=== PATIENT | female | born 1975 | race Caucasian/White ===

== ENCOUNTER 2018-05-16 08:01 | Inpatient (IN) | payer OTHER ==
[~2018-05-16] VITALS: Ht 165.1 cm; Wt 89.8 kg
[2018-05-16] MEDS ORDERED: NACL 0.9% 1,000 ML IV SCH ×2 (08:04→08:25)
[2018-05-16] MEDS ORDERED: FAMOTIDINE 20 MG/2 ML VIAL IVP ONE (08:05)
[2018-05-16 08:08] VITALS: BP 151/72
[2018-05-16] MEDS ORDERED: PANTOPRAZOLE 40 MG INJ VIAL IVP ONE (08:10)
--- NOTE | 2018-05-16 08:10 | NUR ---
PT AMBULATED TO ER BED 07
--- NOTE | 2018-05-16 08:20 | NUR ---
PATIENT PRESENTS TO ED WITH C/O DIZZY/LIGHTHEADED FOR WEEKS, RREFERRED OVER BY DR. MUÑOZ FOR SEVERE ANEMIA. HX OF CROHNS DISEASE, ANEMIA, ULCERATIVE COLITIS. AAOX4 WITH EVEN AND STEADY GAIT; LUNGS CLEAR BL; HR EVEN AND REGULAR; PT DENIES ANY FEVER, CP, SOB, OR COUGH AT THIS TIME; DENIES N/V/D; SKIN IS PINK/WARM/DRY; PATIENT STATES LIGHTHEADED 3/10 AT THIS TIME; VSS; PATIENT POSITIONED FOR COMFORT; HOB ELEVATED; BEDRAILS UP X2; BED DOWN. ER MADE AWARE OF PT STATUS. Addendum: 05/16/18 at 0903 by MNURTX BLEEDING IN STOOL PER PT.
[2018-05-16] MEDS ORDERED: MORPHINE SULFATE 2 MG/ML SYR IVP ONE (08:25)
[2018-05-16] MEDS ORDERED: metroNIDAZOLE 500 MG/NS PREMIX 100 ML IV ONE (08:25)
[2018-05-16] MEDS ORDERED: ONDANSETRON 4 MG/2 ML VIAL IVP ONE (08:25)
[2018-05-16] MEDS ORDERED: NACL 0.9% 1,000 ML IV ONE (08:25)
[2018-05-16] MEDS ORDERED: DEXAMETHASONE 10 MG/ML VIAL IVP ONE (08:25)
[2018-05-16] MEDS ORDERED: DICYCLOMINE HCL LIQUID 10 MG/5 ML UDC PO ONE (08:25)
--- NOTE | 2018-05-16 08:25 | NUR ---
Patient being evaluated by physician at bedside.
[2018-05-16 08:56] LABS: EOSINOPHILS # (AUTO) 0.1 K/uL (0-0.4); MEAN CORPUSCULAR VOLUME 60.2 fL (80-94); MONOCYTES # (AUTO) 0.4 K/uL (0.8-1.0); RED BLOOD CELL COUNT(AUTO) 2.78 MIL/uL (4.20-5.40)
[2018-05-16 08:59] LABS: BASOPHILS % (AUTO) 0.2 % (0.0-2.0); EOSINOPHILS % (AUTO) 1.4 % (0.0-4.0); LYMPHOCYTES # (AUTO) 1.9 K/uL (2.5-16.5); LYMPHOCYTES % (AUTO) 26.1 % (20.5-51.1); MEAN CORPUSCULAR HEMOGLOBIN 16 pg (27-31); MEAN CORPUSCULAR HGB CONC 27 g/dL (33-37); MONOCYTES % (AUTO) 5.3 % (1.7-9.3); NEUTROPHILS # (AUTO) 4.9 K/uL (1.8-7.7); PLATELET COUNT (AUTO) 289 K/uL (140-450); RED CELL DISTRIBUTION WIDTH 19.4 % (11.6-13.7); WHITE BLOOD COUNT (AUTO) 7.3 K/uL (4.8-10.8)
[2018-05-16 09:04] LABS: HEMATOCRIT 16.7 % (36-48); HEMOGLOBIN 4.6 g/dL (12.0-16.0)
[2018-05-16 09:05] LABS: AMYLASE 19 U/L (25-115); LIPASE 89 U/L (73-393)
[2018-05-16 09:12] LABS: PROTHROMBIN TIME 9.3 secs (10.8-13.4)
[2018-05-16 09:15] LABS: ANION GAP 9.6 (8-16); CARBON DIOXIDE 27.8 mmol/L (21-32); POTASSIUM 3.4 mmol/L (3.5-5.1)
[2018-05-16 09:16] LABS: ALBUMIN 3.1 g/dL (3.4-5.0); CREATININE 0.9 mg/dL (0.6-1.3); TOTAL BILIRUBIN 0.4 mg/dL (0.0-1.0)
--- NOTE | 2018-05-16 09:21 | NUR ---
COULD NOT GET THE IV SITE AT THIS TIME, DR. TENORIO MADE AWARE.
--- NOTE | 2018-05-16 09:36 | NUR ---
DR TENORIO AT BEDSIDE PREFORMING CENTRAL LINE INSERTION.
[2018-05-16] MEDS ORDERED: LIDOCAINE MPF 1% - 5 mL VIAL 10 ML ONE (09:37)
--- NOTE | 2018-05-16 10:06 | NUR ---
DR. TENORIO STATED IT IS OK TO USE THE CENTRAL LINE TO RIGHT FEMOUS.
[2018-05-16] MEDS: NACL 0.9% 1,000 ML IV SCH (10:19)
[2018-05-16] MEDS ORDERED: diphenhydrAMINE 50 MG/ML VIAL IVP ONE (10:25)
[2018-05-16 11:05] VITALS: BP 111/42
--- NOTE | 2018-05-16 11:05 | NUR ---
Patient will be admitted to care of DR. EUCEDA. Admited to TELEMETRY. Will go to room 105A. Belongings list completed. Report to MICHAEL GARCIA AT BEDSIDE.
[2018-05-16 11:09] LABS: APPEARANCE,URINE CLEAR (CLEAR); BILIRUBIN,URINE NEGATIVE (NEGATIVE); BLOOD, URINE 2+ (NEGATIVE); COLOR,URINE YELLOW (YELLOW); LEUKOCYTE ESTERASE ,URINE NEGATIVE (NEGATIVE); NITRITE, URINE NEGATIVE (NEGATIVE); UGLUCOSE NEGATIVE (NEGATIVE)
[2018-05-16 11:16] LABS: RBC,URINE 3-10 (FEW) /HPF (0-5); WBC,URINE 0-5 (RARE) /HPF (0-5)
--- NOTE | 2018-05-16 11:20 | NUR ---
RECEIVED PT REPORT FROM ER NURSE KRISTINA. PT IS AAOX4. NO S/S OF ACUTE DISTRESS NOTED ON 2L NC. PT C/O ABD PAIN 7/10, WILL ADMINISTER PAIN MED ORDERED. RIGHT FEMORAL CENTRAL LINE NOTED. TRIPLE LUMEN, FLUSHED, BLOOD RETURN GOOD. RUNNING NS BOLUS. ACCORDING TO ER NURSE, RIGHT FEMORAL CVP WAS PUT IN BY ER MD ON THE 2ND TRY. CENTRAL LINE DRESSING IS INTACT, NO REDNESS NOTED, A LITTLE SWELLING. ORIENTED PT TO ROOM AND CALL LIGHT. MRSA SWAB DONE. PT DENIES ANY NAUSEA AND VOMITING AT THIS TIME. BED IN LOWEST POSITION, LOCKED. CALL LIGHT WITHIN REACH. TELE MONITORING ON. WILL CONTINUE TO MONITOR.
[2018-05-16] MEDS: MORPHINE SULFATE 2 MG/ML SYR IVP PRN ×3 (11:25→19:53)
[2018-05-16] MEDS ORDERED: FAMOTIDINE 20 MG/2 ML VIAL ONE (11:27)
[2018-05-16] MEDS ORDERED: PANTOPRAZOLE 40 MG INJ VIAL ONE (11:28)
--- NOTE | 2018-05-16 12:05 | NUR ---
BLOOD TRANSFUSION STARTED. PRE TRANSFUSION VITALS TAKEN, RECORDED ON BLOOD TRANSFUSION PAPER.
--- NOTE | 2018-05-16 13:26 | NUR ---
BLOOD TRANSFUSION IS INFUSING. PATIENT TOLERATED WELL. VITAL SIGNS ARE STABLE. NO SIGNS OF DISTRESS NOTED. DENIES OF PAIN. DAUGHTER MILAN IS AT BEDSIDE. WILL CONTINUE TO MONITOR.
--- NOTE | 2018-05-16 14:30 | NUR ---
PAGED DR EUCEDA.
--- NOTE | 2018-05-16 15:49 | NUR ---
SPOKE WITH DR EUCEDA OVER THE PHONE, REPORTED PT C/O PAIN AT THE RIGHT FEMORAL CVP SITE. A BUMP IS NOTICED. NO REDNESS. SUGGESTED IT MIGHT BE HEMATOMA OR TRAUMA FROM CVP INSERTION. STILL WAITING ON X RAY FOR CVP PLACEMENT RESULT. DR EUCEDA STATED THERE IS NOTHING CAN BE DONE AT THIS TIME, PT CAN HAVE PICC LINE.
--- NOTE | 2018-05-16 15:55 | NUR ---
SPOKE WITH PT ABOUT PICC LINE OR A NEW IV ON HER ARM, HOWEVER, PT REFUSED TO HAVE ANOTHER LINE INSERTION.
[2018-05-16 16:00] VITALS: BP 118/73
--- NOTE | 2018-05-16 16:35 | NUR ---
SPOKE WITH DR EUCEDA, NOTIFIED HIM THAT CHEST X RAY FOR PLACEMENT THAT DID NOT SHOW THE CENTRAL LINE CATHETER IN THE LOWER VENA CAVA, BUT THERE IS BLOOD RETURN WHEN ASPIRATING. DR EUCEDA STATED IT'S OK, YOU WON'T SEE IT ON THE CHEST X RAY IF IT'S A FEMORAL CVP. DR IS OK WITH GIVING THE 2ND UNIT OF BLOOD VIA THE R FEMORAL CVP.
--- NOTE | 2018-05-16 17:15 | NUR ---
CHECKED PATIENT'S PRE-TRANSFUSION VITAL SIGNS; TEMP 97.5, PULSE 98, RESPIRATION 19, BP 128/65, AND PAIN 2/10 WITHIN TOLERATED LIMIT. NO SIGNS OF DISTRESS WITH 2L NC. ASSISTED PATIENT TO USE THE BEDPAN TO VOID. BLOOD TRANSFUSION STARTED AT THIS TIME. WILL CONTINUE TO MONITOR.
--- NOTE | 2018-05-16 17:45 | NUR ---
BLOOD TRANSFUSION IS INFUSING. PATIENT'S VITAL SIGNS ARE STABLE. PATIENT DENIES OF ANY DIZZINESS AND NAUSEA. PATIENT CLAIMS OF PAIN 2/10 WITHIN TOLERATED LIMIT. NO SIGNS OF DISTRESS W 2L NC NOTED. WILL CONTINUE TO MONITOR.
[2018-05-16] MEDS ORDERED: GABA100C PO (19:10)
--- NOTE | 2018-05-16 19:10 | NUR ---
GAVE BEDSIDE REPORT TO AUTOMOTIVE PARTS COUNTER ASSOCIATE FOR CONTINUITY OF CARE. PATIENT IS STABLE. DENIES OF PAIN AND NAUSEA. NO SIGNS OF DISTRESS NOTED. INFORMED AUTOMOTIVE PARTS COUNTER ASSOCIATE NURSE TO NOTIFY LAB FOR BLOOD LAB 2 HOURS AFTER BLOOD TRANSFUSION COMPLETED.
--- NOTE | 2018-05-16 19:10 | NUR ---
REPORT RECEIVED FROM RADHA RN DAYSHIFT NURSE AND FERNANDO RN DAYSHIFT NURSE AT BEDSIDE FOR CONTINUITY OF CARE, PT IN STABLE CONDITION.
[2018-05-16] MEDS ORDERED: ADAL40PE2 SQ (19:26)
[2018-05-16] MEDS ORDERED: HYDR-5092 PO (19:26)
--- NOTE | 2018-05-16 19:35 | NUR ---
BLOOD TRANSFUSION CONTINUES VIA CENTRAL LINE IN R FEMORAL VEIN. V/S FOLLOWS T 98.3 P 62 R 20 B/P 128/69 02 96% ON R/A. PT C/O 8/10 PAIN IN ABDOMEN. WILL MEDICATE PT.
[2018-05-16 20:00] VITALS: BP 142/74
--- NOTE | 2018-05-16 20:50 | NUR ---
BLOOD TRANSFUSION FINISHED FINAL V/S FOLLOWS T 98.4 P 70 R 18 B/P 128/69 02 96% WITH R/A. PT GIVEN PRN/IVP MORPHINE 0.5ML/1MG GIVEN IVP ORDERED. WILL MONITOR PT FOR PAIN RELIEF.
--- NOTE | 2018-05-16 22:15 | NUR ---
LAB AT BEDSIDE DRAWING POST TRANSFUSION LABS.
[2018-05-16 22:46] LABS: HEMATOCRIT 23.8 % (36-48)
--- NOTE | 2018-05-16 23:00 | NUR ---
ALVARO FROM LAB CALLED NEW LAB VALUES FOR H&H. 7.0/23.8. PT UPDATED.
[2018-05-17] VITALS: BP 130/67
[2018-05-17] MEDS: MORPHINE SULFATE 2 MG/ML SYR IVP PRN ×6 (00:22→22:21)
[2018-05-17] MEDS: NACL 0.9% 1,000 ML IV SCH ×3 (00:30→22:27)
--- NOTE | 2018-05-17 02:00 | NUR ---
PT SLEEPING BED IN LOW POSITION SIDE RAILS UP X2 AND CALL CASTILLO IN REACH.
[2018-05-17 04:00] VITALS: BP 107/53
--- NOTE | 2018-05-17 04:30 | NUR ---
PT IN BED AWAKE WITH C/O OF 7/10 PAIN GIVEN MORPHINE IVP, WILL MONITOR EFFECT. V/S FOLLOWS T 98.4 P 62 R 18 B/P 131/63 02 93% ON R/A.
[2018-05-17 07:13] LABS: BASOPHILS % (AUTO) 0.1 % (0.0-2.0); HEMATOCRIT 22.3 % (36-48); LYMPHOCYTES # (AUTO) 1.3 K/uL (2.5-16.5); LYMPHOCYTES % (AUTO) 26.8 % (20.5-51.1); MEAN CORPUSCULAR HEMOGLOBIN 20 pg (27-31); MEAN CORPUSCULAR HGB CONC 30 g/dL (33-37); MEAN CORPUSCULAR VOLUME 68.4 fL (80-94); MONOCYTES # (AUTO) 0.2 K/uL (0.8-1.0); MONOCYTES % (AUTO) 3.7 % (1.7-9.3); NEUTROPHILS # (AUTO) 3.3 K/uL (1.8-7.7); NEUTROPHILS % (AUTO) 69.4 % (42.2-75.2); PLATELET COUNT (AUTO) 231 K/uL (140-450); RED BLOOD CELL COUNT(AUTO) 3.26 MIL/uL (4.20-5.40); RED CELL DISTRIBUTION WIDTH 27.6 % (11.6-13.7); WHITE BLOOD COUNT (AUTO) 4.7 K/uL (4.8-10.8)
--- NOTE | 2018-05-17 07:30 | NUR ---
RECEIVED BEDSIDE REPORT FROM CREASING MACHINE OPERATOR RN. PT AAOX4, SLEEPING IN BED, AROUSABLE BY TOUCH. C/O /10 ABD PAIN AND DISCOMFORT, WISHES TO RECEIVE MORPHINE WHEN DUE. NO S/S ACUTE DISTRESS. RESPIRATIONS EVEN AND UNLABORED. SKIN INTACT. PER CREASING MACHINE OPERATOR, PT IS CONTINENT AND AMBULATORY. RT FEMORAL PICC TRIPLE LUMEN PATENT AND ASYMPTOMATIC, INFUSING IVF PER MD ORDERS. ALL OTHER SAFETY PRECAUTIONS IN PLACE, WILL CONTINUE TO MONITOR.
[2018-05-17 07:36] LABS: HEMOGLOBIN 6.6 g/dL (12.0-16.0)
--- NOTE | 2018-05-17 07:42 | NUR ---
PT DENIES DIZZINESS, LIGHTHEADEDNESS. NO CHANGE IN FATIGUE. VITALS STABLE.
--- NOTE | 2018-05-17 07:45 | NUR ---
NOTIFIED DR. EUCEDA REGARDING LOW HGB 6.6. RECEIVED ORDERS TO TRANSFUSE 2U PRBC.
[2018-05-17 07:54] LABS: ALBUMIN 2.8 g/dL (3.4-5.0); ANION GAP 11.9 (8-16); CREATININE 0.6 mg/dL (0.6-1.3); POTASSIUM 3.9 mmol/L (3.5-5.1); TOTAL BILIRUBIN 0.6 mg/dL (0.0-1.0)
[2018-05-17 08:00] VITALS: BP 127/64
--- NOTE | 2018-05-17 08:57 | NUR ---
CALLED BLOOD BANK TO MAKE SURE THEY ARE AWARE OF 2U PRBC ORDER. BLOOD BANK WILL FOLLOW UP.
--- NOTE | 2018-05-17 10:45 | NUR ---
DR. EUCEDA HAS EXPLAINED POC TO PATIENT AND ANSWERED ALL OF PT'S QUESTIONS. PT VERBALIZED COMPLETE UNDERSTANDING. PER DR. EUCEDA, PUT PT ON CLEAR LIQUID DIET. IF DR. MUÑOZ DECIDES TO DO PROCEDURE, PLACE PT BACK ON NPO.
[2018-05-17 11:11] LABS: HEMATOCRIT 21.6 % (36-48)
[2018-05-17 11:14] LABS: HEMOGLOBIN 6.4 g/dL (12.0-16.0)
[2018-05-17 12:00] VITALS: BP 126/72
--- NOTE | 2018-05-17 14:55 | NUR ---
FIRST UNIT PRBC TRANSFUSION COMPLETE. NO REACTION. PT WISHES TO USE THE BATHROOM FOR A WHILE BEFORE SECOND BAG PRBC.
[2018-05-17 16:00] VITALS: BP 126/72
--- NOTE | 2018-05-17 16:08 | NUR ---
SECOND UNIT PRBC TRANSFUSION STARTED.
--- NOTE | 2018-05-17 19:15 | NUR ---
ENDORSED POC TO BEATER AND PULPER FEEDER RN. PT IN STABLE CONDITION.
--- NOTE | 2018-05-17 19:15 | NUR ---
RECEIVED REPORT FROM ALONDRA RODRIGUEZ DAYSHIFT NURSE AT BEDSIDE FOR CONTINUITY OF CARE, PT IN STABLE CONDITION.
--- NOTE | 2018-05-17 19:20 | NUR ---
BLOOD TRANSFUSION COMPLETED, NO S/S OF REACTION NOTED. PT AOX4 AND WAS ABLE TO AMBULATE TO TOILET AND BACK TO BED STEADILY. PT HAD A BM WITH NO BLOODY STOOL. PT DID C/O THAT HER PRN MORPHINE WAS NOT EFFECTIVE ANY MORE AND THAT SHE FEELS THAT WE NEED TO CHANGE THE DOSE. WILL CALL HER PRIMARY DOCTOR REGARDING HE PAIN MEDICATION. V/S FOLLOWS T 97.7 P 60 R18 B/P 149/83 02 99% WITH R/A.
[2018-05-17 20:00] VITALS: BP 149/83
--- NOTE | 2018-05-17 20:30 | NUR ---
CALLED [facility] EXCHANGE NUMBER AND SPOKE WITH IAN WHO PAGED THE ON- CALL BENNIE ZAMUDIO. AWAITING RETURN CALL.
--- NOTE | 2018-05-17 21:00 | NUR ---
RECEIVED A CALL BACK FROM DR. BALDERAS, NEW ORDER NOTED FOR MORPHINE 3MG/1.5MLS Q 4HRS FOR SEVERE PAIN 10/29.
--- NOTE | 2018-05-17 22:30 | NUR ---
PT REQUEST PAIN MEDICATION FOR SEVERE PAIN 11/29. PT MOANING, CRYING AND GUARDING SITE. WHEN MEDICATION WAS DRAWN OUT OF PIXIS, 2 SYRINGES WERE ORDERED AND 1/2 A SYRINGE NEEDED TO BE WASTED. WHEN TAKING SYRINGE OUT OF PACKAGE , THE PLUNGER CAME OUT AND THE MEDICATION SPILLED. MORE MEDICATION NEEDED TO BE TAKEN OUT OF PIXIS (2 MORE SYRINGES.) ONE SYRINGE WAS RETURNED AND 1/2 A SYRINGE WAS WASTED TO MAKE UP 3MLS OF MORPHINE TO BE GIVEN TO PT VIA IV SITE. PT GIVEN ORDERED 3MG OF MORPHINE FOR SEVERE PAIN. BENNIE CONTINUE TO MONITOR PT FOR PAIN RELIEF.
[2018-05-18] VITALS: BP 123/66
--- NOTE | 2018-05-18 00:30 | NUR ---
PT IN BED RESTING WITH EYES CLOSED, BUT AROUSABLE TO NAME. PT STATES THAT SHE HAS NO PAIN AT THIS TIME 0. V/S FOLLOWS T 97.6 P 54 R 18 B/P 123/66 02 94% ON R/A.
[2018-05-18] MEDS: MORPHINE SULFATE 2 MG/ML SYR IVP PRN ×5 (02:39→20:05)
--- NOTE | 2018-05-18 02:45 | NUR ---
PT C/O SEVERE PAIN 8/10 IN ABD, GIVEN 3MG MORPHINE IVP WILL MONITOR PT FOR PAIN RELIEF.
[2018-05-18 04:00] VITALS: BP 132/69
--- NOTE | 2018-05-18 04:00 | NUR ---
PT IN BED NO C/O VOICED V/S FOLLOWS T 97.2 P 58 R 18 B/P 132/69 02 92 ON R/A. BED LOW AND SIDE RAILS UP X2 CALL CASTILLO IN REACH.
--- NOTE | 2018-05-18 05:30 | NUR ---
BETH BLOOD FROM RIGHT PICC LINE FOR LABS.
--- NOTE | 2018-05-18 06:29 | NUR ---
PATIENT HAS BEEN SCREENED AND CATEGORIZED MODERATE NUTRITION RISK. PATIENT WILL BE SEEN WITHIN 3-5 DAYS OF ADMISSION. 05/19/18-05/21/18 YAYO KENDALL MS, RDN
--- NOTE | 2018-05-18 07:10 | NUR ---
RECEIVED PT REPORT FROM PLASTIC SEWER NURSE. PT IS AWAKE AND C/O PAIN IN HER L ABD, EVEN THOUGH SHE WAS GIVEN PRN PAIN MEDICINE Q4H, AND HER MORPHINE DOSE HAS BEEN RECENTLY INCREASED TO 3 MG. PT IS ON ROOM AIR, SKIN IS INTACT. NO C/O SOB PT HAS A TRIPLE LUMEN CENTRAL LINE IN THE FEMORAL VEIN, CURRENTLY INFUSING NS 75 ML/HR. CALL LIGHT WITHIN REACH. WILL CONT TO MONITOR PT.
--- NOTE | 2018-05-18 07:20 | NUR ---
CARE ENDORSED TO JJ RN DAYSHIFT NURSE AT BEDSIDE FOR CONTINUITY CARE, PT IN STABLE CONDITION.
[2018-05-18 07:21] LABS: BASOPHILS % (AUTO) 0.1 % (0.0-2.0); EOSINOPHILS % (AUTO) 0.1 % (0.0-4.0); HEMATOCRIT 27.3 % (36-48); HEMOGLOBIN 8.3 g/dL (12.0-16.0); LYMPHOCYTES # (AUTO) 2.6 K/uL (2.5-16.5); LYMPHOCYTES % (AUTO) 23.9 % (20.5-51.1); MEAN CORPUSCULAR HEMOGLOBIN 22 pg (27-31); MEAN CORPUSCULAR HGB CONC 30 g/dL (33-37); MONOCYTES # (AUTO) 0.7 K/uL (0.8-1.0); MONOCYTES % (AUTO) 6.9 % (1.7-9.3); NEUTROPHILS # (AUTO) 7.4 K/uL (1.8-7.7); PLATELET COUNT (AUTO) 222 K/uL (140-450); RED BLOOD CELL COUNT(AUTO) 3.85 MIL/uL (4.20-5.40); WHITE BLOOD COUNT (AUTO) 10.7 K/uL (4.8-10.8)
[2018-05-18 08:00] VITALS: BP 153/81
--- NOTE | 2018-05-18 08:00 | NUR ---
PT IS C/O PAIN NOT RELIEVING EVEN AFTER HAVING PRN MORPHINE 3MG ADMINISTERED Q4H. SHE INSISTS ON TALKING TO THE DOCTOR RIGHT AWAY ABOUT HER PAIN MEDICATION AND STATES THAT STAFF IS "NOT LISTENING TO HER" ABOUT HER PAIN COMPLAINTS. WILL TALK TO DOCTOR KINSEY REGARDING PT'S PAIN
[2018-05-18 08:01] LABS: ALBUMIN 2.8 g/dL (3.4-5.0); ANION GAP 9.8 (8-16); CARBON DIOXIDE 24.9 mmol/L (21-32); CREATININE 0.7 mg/dL (0.6-1.3); POTASSIUM 3.7 mmol/L (3.5-5.1); TOTAL BILIRUBIN 0.5 mg/dL (0.0-1.0)
--- NOTE | 2018-05-18 08:43 | NUR ---
DR EUCEDA IS AWARE OF PT'S UNRELENTING PAIN EVEN AFTER INCREASING DOSE OF MORPHINE
--- NOTE | 2018-05-18 09:18 | NUR ---
PT SEEN BY DR EUCEDA
--- NOTE | 2018-05-18 10:25 | NUR ---
PT OFF THE UNIT FOR ABD/PELVIS CT SCAN
--- NOTE | 2018-05-18 10:40 | NUR ---
PT BACK IN ROOM FROM CT SCAN
[2018-05-18 12:00] VITALS: BP 131/73
[2018-05-18] MEDS: methylPREDNISolone SS 125 MG/2 ML VIAL IVP SCH ×2 (12:41→20:04)
[2018-05-18] MEDS: metroNIDAZOLE 500 MG/NS PREMIX 100 ML IV SCH ×2 (12:42→20:04)
--- NOTE | 2018-05-18 12:55 | NUR ---
PT STATES HER PAIN IS MUCH BETTER AT THIS TIME. IV FLAGYL IS INFUSING, DAUGHTER VISITING AT BEDSIDE. WILL CONTINUE TO MONITOR.
[2018-05-18] MEDS: NACL 0.9% 1,000 ML IV SCH (15:39)
[2018-05-18 16:00] VITALS: BP 148/70
--- NOTE | 2018-05-18 19:25 | NUR ---
ENDORSED TO LIFE SCIENTIST IN STABLE CONDITION
--- NOTE | 2018-05-18 19:26 | NUR ---
RECEIVED REPORT FROM DAY SHIFT NURSE JJ-RN AT BEDSIDE. PT RESTING IN BED, AOX4, ON ROOM AIR WITH A CENTRAL RIGHT FEMORAL VEIN TRIPLE LUMEN. DISCUSSED PLAN OF CARE AND PT VERBALIZED UNDERSTANDING. NO S/S OF RESPIRATORY DISTRESS OR DISCOMFORT NOTED AT THIS TIME. BED IN LOWEST POSITION, BED BREAKS ON, BOTH SIDE RAILS UP. BEDSIDE TABLE AND CALL LIGHT ARE WITHIN REACH. WILL CONTINUE TO MONITOR.
[2018-05-18 20:00] VITALS: BP 118/42
--- NOTE | 2018-05-18 20:00 | NUR ---
VITAL SIGNS TAKEN AND TOLERATED WELL. PT C/O PAIN 10/29- WILL MEDICATE. NO S/S OF RESPIRATORY DISTRESS OR DISCOMFORT NOTED AT THIS TIME. WILL CONTINUE TO MONITOR.
--- NOTE | 2018-05-18 20:05 | NUR ---
SCHEDULED MEDICATION GIVEN AND PAIN MEDICATION. PT TOLERATED WELL. NO S/S OF RESPIRATORY DISTRESS OR DISCOMFORT NOTED AT THIS TIME. WILL CONTINUE TO MONITOR.
--- NOTE | 2018-05-18 22:00 | NUR ---
PT RESTING IN BED. NO S/S OF RESPIRATORY DISTRESS OR DISCOMFORT NOTED AT THIS TIME. WILL CONTINUE TO MONITOR.
[2018-05-19] VITALS: BP 131/57
--- NOTE | 2018-05-19 | NUR ---
VITAL SIGNS TAKEN AND TOLERATED WELL. PT C/O PAIN 10/29 WILL MEDICATE. NO S/S OF RESPIRATORY DISTRESS OR DISCOMFORT NOTED AT THIS TIME. WILL CONTINUE TO MONITOR.
[2018-05-19] MEDS: MORPHINE SULFATE 2 MG/ML SYR IVP PRN ×4 (00:24→14:07)
--- NOTE | 2018-05-19 00:24 | NUR ---
PAIN MEDICATION GIVEN AND TOLERATED WELL. NO S/S OF RESPIRATORY DISTRESS OR DISCOMFORT NOTED AT THIS TIME. WILL CONTINUE TO MONITOR.
--- NOTE | 2018-05-19 02:00 | NUR ---
PT SLEEPING IN BED. NO S/S OF RESPIRATORY DISTRESS OR DISCOMFORT NOTED AT THIS TIME. WILL CONTINUE TO MONITOR.
[2018-05-19 04:00] VITALS: BP 145/76
--- NOTE | 2018-05-19 04:00 | NUR ---
VITAL SIGNS TAKEN AND TOLERATED WELL. NO S/S OF RESPIRATORY DISTRESS OR DISCOMFORT NOTED AT THIS TIME. WILL CONTINUE TO MONITOR.
[2018-05-19] MEDS: NACL 0.9% 1,000 ML IV SCH (04:40)
[2018-05-19] MEDS: methylPREDNISolone SS 125 MG/2 ML VIAL IVP SCH (04:40)
[2018-05-19] MEDS: metroNIDAZOLE 500 MG/NS PREMIX 100 ML IV SCH (04:40)
--- NOTE | 2018-05-19 04:40 | NUR ---
SCHEDULED MEDICATION GIVEN AND TOLERATED WELL. PT C/O PAIN 710- WILL MEDICATE. NO S/S OF RESPIRATORY DISTRESS OR DISCOMFORT NOTED AT THIS TIME. WILL CONTINUE TO MONITOR.
--- NOTE | 2018-05-19 04:53 | NUR ---
PAIN MEDICATION GIVEN AND TOLERATED WELL. NO S/S OF RESPIRATORY DISTRESS OR DISCOMFORT NOTED AT THIS TIME. WILL CONTINUE TO MONITOR.
[2018-05-19] MEDS ORDERED: MORPHINE SULFATE 4 MG/ML SYR ONE (04:59)
[2018-05-19 06:50] LABS: ANION GAP 9.6 (8-16); CARBON DIOXIDE 27.3 mmol/L (21-32); CREATININE 0.6 mg/dL (0.6-1.3); POTASSIUM 3.9 mmol/L (3.5-5.1); TOTAL BILIRUBIN 0.6 mg/dL (0.0-1.0)
--- NOTE | 2018-05-19 07:21 | NUR ---
RECEIVED REPORT FROM COVER MARKER RN AT BEDSIDE. PT RESTING IN BED, AOX4, ON ROOM AIR WITH A CENTRAL RIGHT FEMORAL VEIN TRIPLE LUMEN. DISCUSSED PLAN OF CARE AND PT VERBALIZED UNDERSTANDING. NO S/S OF RESPIRATORY DISTRESS OR DISCOMFORT NOTED AT THIS TIME. BED IN LOWEST POSITION, BED BREAKS ON, BOTH SIDE RAILS UP. BEDSIDE TABLE AND CALL LIGHT ARE WITHIN REACH. WILL CONTINUE TO MONITOR.
--- NOTE | 2018-05-19 07:29 | NUR ---
ENDORSED PT CARE TO DAY SHIFT NURSE ROBERT FOR CONTINUITY OF CARE.
[2018-05-19 08:00] VITALS: BP 138/63
[2018-05-19 08:24] LABS: BASOPHILS % (AUTO) 0.1 % (0.0-2.0); HEMATOCRIT 28.4 % (36-48); HEMOGLOBIN 8.6 g/dL (12.0-16.0); LYMPHOCYTES # (AUTO) 0.9 K/uL (2.5-16.5); LYMPHOCYTES % (AUTO) 13.1 % (20.5-51.1); MEAN CORPUSCULAR HEMOGLOBIN 22 pg (27-31); MEAN CORPUSCULAR HGB CONC 30 g/dL (33-37); MEAN CORPUSCULAR VOLUME 71.3 fL (80-94); MONOCYTES # (AUTO) 0.1 K/uL (0.8-1.0); MONOCYTES % (AUTO) 1.4 % (1.7-9.3); NEUTROPHILS % (AUTO) 85.4 % (42.2-75.2); PLATELET COUNT (AUTO) 219 K/uL (140-450); RED BLOOD CELL COUNT(AUTO) 3.99 MIL/uL (4.20-5.40); RED CELL DISTRIBUTION WIDTH 28.7 % (11.6-13.7); WHITE BLOOD COUNT (AUTO) 7.1 K/uL (4.8-10.8)
--- NOTE | 2018-05-19 09:39 | NUR ---
PT COMPLAINING OF 7/10 PAIN. MORPHINE 3MG ADMINISTERED. WILL REASSESS FOR MED EFFECTIVENESS. ALL OTHER NEEDS MET AT THIS TIME. BED IN LOW POSITION, CALL LIGHT WITHIN REACH.
[2018-05-19 12:00] VITALS: BP 142/77
--- NOTE | 2018-05-19 17:40 | NUR ---
PT DISCHARGED HOME VIA PRIVATE VEHICLE ACCOMPANIED BY DAUGHTER. FEMORAL CENTRAL LINE REMOVED WITH TIP INTACT. NO SIGNS OF BLEEDING NOTED. PT SIGNED DISCHARGE PAPERS. VERBALIZED UNDERSTANDING OF TEACHING AND IMPORTANCE OF FOLLOW UP WITH GI SPECIALIST. PT TOOK ALL PERSONAL BELONGINGS WITH HER. PT LEFT IN STABLE CONDITION. ALL NEEDS MET AT THIS TIME.
== END 2018-05-19 17:40 | disposition home or self-care (01) | DRG 253 ==
LOC: MED 08:01 → MTU 10:25
PROVIDERS: ADMIT Internal Medicine; ATTEND Internal Medicine
PROC: 30233N1 Transfusion of Nonautologous Red Blood Cells into Peripheral Vein, Percutaneous Approach (ICD-10-PCS; principal; 2018-05-16)
PROC: 06H033Z Insertion of Infusion Device into Inferior Vena Cava, Percutaneous Approach (ICD-10-PCS; 2018-05-16)
PROC: B549ZZA Ultrasonography of Inferior Vena Cava, Guidance (ICD-10-PCS; 2018-05-16)
DX: K92.2 Gastrointestinal hemorrhage, unspecified (principal); K50.90 Crohn's disease, unspecified, without complications; D62 Acute posthemorrhagic anemia; G89.29 Other chronic pain; M54.5 Low back pain; Z82.49 Family history of ischemic heart disease and other diseases of the circulatory system
CPT/HCPCS: 36415; 36556; 71045; 80053; 81001; 81025; 82150; 83690; 84703; 85018; 85025; 85610; 85730; 86886; 86900; 86901; 86920; 87081; 93005; 96365; 96375; 99291; C9113; J1100; J1200; J1642; J2001; J2270; J2405; J2930; J3490; J7030; P9016; Q0092

== ENCOUNTER 2019-11-10 10:13 | Emergency (ER) | payer OTHER, SELFPAY ==
[~2019-11-10] VITALS: Ht 160 cm; Wt 88.5 kg
[~2019-11-10 10:13] MED LIST: ADAL40PE2 SQ; GABA100C PO; HYDR-5092 PO
[2019-11-10 10:25] VITALS: BP 140/85
--- NOTE | 2019-11-10 10:26 | NUR ---
Pt ambulated to bed 07
--- NOTE | 2019-11-10 10:28 | NUR ---
44 y/o female from home c/o gen weakness x 1 wk and dizziness since yesterday. Pt states she was admitted to [facility] last month for intestinal infection. denies n/v/d. States 5/10 pain at this time. Denies sob/cough. RR even and unlabored, bowel sounds present x 4 quad. positioned for comfort. vss
--- NOTE | 2019-11-10 10:30 | NUR ---
Pt ambulated to restroom for collection of urine
--- NOTE | 2019-11-10 10:33 | NUR ---
Dr Richardson at bedside examining pt
[2019-11-10] MEDS ORDERED: METOCLOPRAMIDE 10 MG/2 ML INJ VIAL IVP ONE (10:40)
[2019-11-10] MEDS ORDERED: diphenhydrAMINE 50 MG/ML VIAL IVP ONE (10:40)
[2019-11-10] MEDS ORDERED: NACL 0.9% 1,000 ML IV ONE ×2 (10:40→13:05)
--- NOTE | 2019-11-10 10:54 | NUR ---
Lab at bedside for blood draw
[2019-11-10 11:15] LABS: BASOPHILS % (AUTO) 0.2 % (0.0-2.0); EOSINOPHILS # (AUTO) 0.2 K/uL (0-0.4); EOSINOPHILS % (AUTO) 2.1 % (0.0-4.0); HEMATOCRIT 37.9 % (36-48); HEMOGLOBIN 11.8 g/dL (12.0-16.0); LYMPHOCYTES # (AUTO) 4.5 K/uL (2.5-16.5); MEAN CORPUSCULAR HEMOGLOBIN 25 pg (27-31); MEAN CORPUSCULAR HGB CONC 31 g/dL (33-37); MEAN CORPUSCULAR VOLUME 79.5 fL (80-94); MONOCYTES # (AUTO) 0.7 K/uL (0.8-1.0); NEUTROPHILS # (AUTO) 4.4 K/uL (1.8-7.7); NEUTROPHILS % (AUTO) 44.7 % (42.2-75.2); PLATELET COUNT (AUTO) 234 K/uL (140-450); RED BLOOD CELL COUNT(AUTO) 4.76 MIL/uL (4.20-5.40); RED CELL DISTRIBUTION WIDTH 26.7 % (11.6-13.7); WHITE BLOOD COUNT (AUTO) 9.9 K/uL (4.8-10.8)
[2019-11-10 11:18] LABS: BILIRUBIN,URINE NEGATIVE (NEGATIVE); BLOOD, URINE NEGATIVE (NEGATIVE); LEUKOCYTE ESTERASE ,URINE NEGATIVE (NEGATIVE); NITRITE, URINE NEGATIVE (NEGATIVE); PH,URINE 5.5 (5.0-9.0); UGLUCOSE NEGATIVE (NEGATIVE)
[2019-11-10 11:22] LABS: APPEARANCE,URINE CLEAR (CLEAR); COLOR,URINE YELLOW (YELLOW)
[2019-11-10 11:32] LABS: ALBUMIN 3.7 g/dL (3.4-5.0); ANION GAP 14.3 (8-16); CARBON DIOXIDE 27.1 mmol/L (21-32); CREATININE 0.8 mg/dL (0.6-1.3); POTASSIUM 4.4 mmol/L (3.5-5.1); TOTAL BILIRUBIN 0.3 mg/dL (0.0-1.0)
--- NOTE | 2019-11-10 12:04 | NUR ---
Pt awake and alert, rr even and unlabored. States some discomfort at this time
--- NOTE | 2019-11-10 12:41 | NUR ---
Ambulated to restroom with steady gait
[2019-11-10] MEDS ORDERED: HALOPERIDOL IM 5 MG/ML VIAL IVP ONE (13:10)
--- NOTE | 2019-11-10 13:23 | NUR ---
PT RESTING IN BED. IVP HALDOL & 2ND LITER OF NS ADMINISTERED PER ORDER. PT DENIES PAIN AT THIS TIME.
--- NOTE | 2019-11-10 14:34 | NUR ---
AWAKE AND ALERT, RR EVEN AND UNLABORED. VSS.
[2019-11-10 15:17] VITALS: BP 134/87
--- NOTE | 2019-11-10 15:18 | NUR ---
Patient discharged with v/s stable. Written and verbal after care instructions given and explained. Patient alert, oriented and verbalized understanding of instructions. Ambulatory with steady gait. All questions addressed prior to discharge. ID band removed. Patient advised to follow up with PMD. Rx of COMPAZINE 10MG given. Patient educated on indication of medication including possible reaction and side effects. Opportunity to ask questions provided and answered.
== END 2019-11-10 15:18 | disposition home or self-care (01) ==
LOC: MED 10:13
DX: F41.9 Anxiety disorder, unspecified (principal); R42 Dizziness and giddiness; E86.0 Dehydration; R11.0 Nausea; D64.9 Anemia, unspecified; K50.90 Crohn's disease, unspecified, without complications; Z79.899 Other long term (current) drug therapy
CPT/HCPCS: 36415; 80053; 81003; 83690; 84702; 85025; 86886; 86900; 86901; 93005; 96361; 96374; 96375; 99284; J1200; J1630; J2765; J7030

== ENCOUNTER 2019-11-18 06:36 | Day surgery (SDC) | payer OTHER, SELFPAY ==
[~2019-11-18] VITALS: Ht 160 cm; Wt 88.5 kg
[2019-11-18] MEDS ORDERED: fentaNYL citrate 0.05 MG/ML VIAL ONE (08:04)
[2019-11-18] MEDS ORDERED: MIDAZOLAM 2 MG/2 ML VIAL ONE (08:04)
[2019-11-18] MEDS ORDERED: diphenhydrAMINE 50 MG/ML VIAL ONE (08:04)
[2019-11-18] MEDS: LIDOCAINE VISCOUS 2% 20 ML UDC ONE (08:12)
[2019-11-18] MEDS: MIDAZOLAM 2 MG/2 ML VIAL IVP ONE (08:12)
[2019-11-18] MEDS: fentaNYL citrate 0.05 MG/ML VIAL IVP ONE (08:13)
[2019-11-18] MEDS: diphenhydrAMINE 50 MG/ML VIAL IVP ONE (08:17)
[2019-11-18] MEDS: LIDOCAINE 2% 100 MG/5 ML UJET TP ONE (08:24)
== END 2019-11-18 09:40 | disposition home or self-care (01) ==
LOC: MDS 06:36 → MFCC 06:37 → MDS 09:40
PROVIDERS: ATTEND Internal Medicine Gastroenterology
DX: D64.9 Anemia, unspecified (principal); K31.7 Polyp of stomach and duodenum; K50.90 Crohn's disease, unspecified, without complications; E55.9 Vitamin D deficiency, unspecified; Z79.899 Other long term (current) drug therapy; Z79.4 Long term (current) use of insulin; R53.83 Other fatigue; Z11.59 Encounter for screening for other viral diseases
CPT/HCPCS: 43239; 45380; 81025; J1200; J2250; J3010; U0003

== ENCOUNTER 2021-05-24 06:51 | Day surgery (SDC) | payer OTHER, SELFPAY ==
[~2021-05-24] VITALS: Ht 160 cm; Wt 98.4 kg
[2021-05-24] MEDS ORDERED: fentaNYL citrate 0.05 MG/ML VIAL ONE (08:40)
[2021-05-24] MEDS ORDERED: diphenhydrAMINE 50 MG/ML VIAL ONE (08:40)
[2021-05-24] MEDS ORDERED: MIDAZOLAM 5 MG/5 ML VIAL ONE (08:40)
[2021-05-24] MEDS ORDERED: LIDOCAINE 2% 100 MG/5 ML UJET TP ONE (08:40)
[2021-05-24] MEDS ORDERED: MIDAZOLAM 2 MG/2 ML VIAL IVP ONE (14:20)
[2021-05-24] MEDS ORDERED: fentaNYL citrate 0.05 MG/ML VIAL IVP ONE (14:20)
== END 2021-05-24 10:05 | disposition home or self-care (01) ==
LOC: MOR 06:51 → MMU 06:52 → MOR 10:05
PROVIDERS: ATTEND Internal Medicine Gastroenterology
DX: K62.5 Hemorrhage of anus and rectum (principal); K50.90 Crohn's disease, unspecified, without complications; R42 Dizziness and giddiness; Z92.25 Personal history of immunosuppression therapy; Z20.822 Contact with and (suspected) exposure to COVID-19
CPT/HCPCS: 45380; 81025; 87426; J2250; J3010; J1200